=== PATIENT | male | born 1980 | race Caucasian/White ===

== ENCOUNTER 2017-08-29 02:57 | Emergency (ER) | payer MEDICAID ==
[~2017-08-29] VITALS: Ht 177.8 cm; Wt 77.1 kg
[2017-08-29 03:07] VITALS: BP 125/83
== END 2017-08-29 06:18 | disposition left against medical advice (07) ==
LOC: ER 03:01
DX: L03.211 Cellulitis of face (principal); Z76.0 Encounter for issue of repeat prescription; Z53.21 Procedure and treatment not carried out due to patient leaving prior to being seen by health care provider